=== PATIENT | female | born 1975 | race Caucasian/White ===

== ENCOUNTER 2016-06-06 12:06 | Inpatient (IN) | payer OTHER ==
[2016-06-06 12:12] VITALS: BMI 23.8
--- NOTE | 2016-06-06 12:35 | PDOC ---
History of Present Illness <Amor Carrero - Last Filed: 06/06/16 15:23> - General History Source: Patient Exam Limitations: No Limitations - History of Present Illness Initial Comments: 06/06/16 14:58 The patient is a 40 year old female, with a significant past medical history of kidney stones, who presents to the emergency department with right tooth pain , right sided facial swelling and headache for the past 3 days. The patient states that she was getting a route canal placed on the right sided 3 days ago when she was having excessive bleeding and severe pain, which stopped the procedure. She was sent home and and informed to spanish moss picker antibiotics and pain medications. She states that she attempted to spanish moss picker the medication and was informed by the pharmacy that there was no medication for her to spanish moss picker. She notes that she then began to take an antibiotic she had from a previous been prescribed from another dental procedure she had a month ago. The patient denies chest pain, shortness of breath, headache and dizziness. Denies fever, chills, nausea, vomit, diarrhea and constipation. LMP: 05/24/16 Allergies: None Past surgical history: None repo Social history: No Alcohol, tobacco or drug use reported Dentist - Dr. Michael black [phone] <Roni Rdz - Last Filed: 06/06/16 15:58> - General Chief Complaint: Edema Stated Complaint: SWOLLEN FACE/dizziness Time Seen by Provider: 06/06/16 12:17 Past History - Past Medical History Kidney Stones: Yes - Psycho/Social/Smoking Cessation Hx Anxiety: No Suicidal Ideation: No Smoking History: Never smoked Information on smoking cessation initiated: No Hx Alcohol Use: No Drug/Substance Use Hx: No Substance Use Type: None <Amor Carrero - Last Filed: 06/06/16 15:23> <Roni Rdz - Last Filed: 06/06/16 15:58> - Past Medical History Allergies/Adverse Reactions: Allergies Allergy/AdvReac Type Severity Reaction Status Date / Time grass pollen Allergy Verified 06/06/16 12:12 pollen extracts Allergy Verified 06/06/16 12:12 Home Medications: Ambulatory Orders Amoxicillin - [Amoxicillin 500mg Capsule -] 500 mg PO Q8H 06/06/16 Ibuprofen 600 mg PO QID PRN 06/06/16 Oxycodone HCl/Acetaminophen [Percocet 5-325 mg Tablet] 1 tab PO Q4H 06/06/16 Review of Systems - Review of Systems Able to Perform ROS?: Yes Comments:: 06/06/16 14:59 CONSTITUTIONAL: No fever, no chills, no fatigue EYES: No visual changes FACE: +Right sided facial swelling. ENT: +Right sided tooth pain. No ear pain, no sore throat CARDIOVASCULAR: No chest pain, no palpitations RESPIRATORY: No cough, no SOB GI: No abdominal pain, no nausea, no vomiting, no constipation, no diarrhea GENITOURINARY: No dysuria, no frequency, no hematuria MUSKULOSKELETAL: No backpain, no joint pain, no myalgias SKIN: No rash NEURO: No headache <Roni Rdz - Last Filed: 06/06/16 15:58> *Physical Exam - Vital Signs Last Vital Signs Temp Pulse Resp BP Pulse Ox 98.2 F 75 18 102/65 100 06/06/16 12:10 06/06/16 12:10 06/06/16 12:10 06/06/16 12:10 06/06/16 12:10 <Amor Carrero - Last Filed: 06/06/16 15:23> - Vital Signs Last Vital Signs Temp Pulse Resp BP Pulse Ox 98.2 F 75 18 102/65 100 06/06/16 12:10 06/06/16 12:10 06/06/16 12:10 06/06/16 12:10 06/06/16 12:10 - Physical Exam Comments: 06/06/16 14:59 CONSTITUTIONAL: Well-appearing; well-nourished; in no apparent distress HEAD: Normocephalic; atraumatic EYES: PERRL; EOM intact FACE: Extensive soft tissue swelling and erythema involving the right side of the face, from the right Zigmoid to the mandible. ENMT: External appears normal; normal oropharynx NECK: Supple; non-tender; no cervical lymphadenopathy CARD: Normal S1, S2; no murmurs, rubs, or gallops RESP: Normal chest excursion with respiration; breath sounds clear and equal bilaterally; no wheezes, rhonchi, or rales ABD: Soft, non-distended; non-tender; no palpable organomegaly, no palpable hernias EXT: Normal ROM in all four extremities; non-tender to palpation; distal pulses intact SKIN: Warm, dry, no rash NEURO: No focal neurological deficiencies. <Roni Rdz - Last Filed: 06/06/16 15:58> ED Treatment Course - LABORATORY CBC & Chemistry Diagram: 06/06/16 13:09 06/06/16 13:09 <Amor Carrero - Last Filed: 06/06/16 15:23> - LABORATORY CBC & Chemistry Diagram: 06/06/16 13:09 06/06/16 13:09 - ADDITIONAL ORDERS Additional order review: Laboratory Results 06/06/16 12:50 Urine HCG, Qual Negative 06/06/16 13:09 RBC 4.46 MCV 89.2 MCHC 33.5 RDW 13.5 MPV 10.3 Neutrophils % 59.2 Lymphocytes % 26.5 D Monocytes % 8.6 Eosinophils % 5.3 H D Basophils % 0.4 - RADIOLOGY Radiograph Interpretation: 06/06/16 14:[address] Reviewed by: Dr. Aaron Read Impression: Significant right side facial soft tissue swelling inferior to the right parotid gland compatible with significant right sided cellulitis with soft tissue inflammatory changes and edematous changes. However on noncontrast study no discrete abscess collection can be identified. - Medications Given in the ED: ED Medications Discontinued Medications Generic Name Dose Route Start Last Admin Trade Name Freq PRN Reason Stop Dose Admin Clindamycin Phosphate 50 mls @ 100 mls/hr 06/06/16 13:06 06/06/16 13:19 Cleocin 600 Mg Premix Ivpb - IVPB 06/06/16 13:35 100 mls/hr ONCE ONE Administration <Roni Rdz - Last Filed: 06/06/16 15:58> Medical Decision Making - Medical Decision Making 06/06/16 15:24 Patient is a 40-year-old female who presents with signs and symptoms of extensive right-sided facial cellulitis likely odontogenic in origin after a root canal procedure at 2 days previously. In the ER, patient is awake and alert , nontoxic-appearing, with minimal right-sided trismus, no evidence of airway compromise, intact extraocular movements without evidence of entrapment or orbital cellulitis. CT of facial bones reveals extensive subcutaneous edema consistent with cellulitis but no evidence of a discrete collection. Patient will require inpatient treatment with IV antibiotics. <Amor Carrero - Last Filed: 06/06/16 15:23> *DC/Admit/Observation/Transfer - Discharge Dispostion Admit: Yes - Attestations Physician Attestion: 06/06/16 15:23 The documentation was prepared by the scribe under my direct supervision. I have reviewed the documentation which correctly represents the findings, medical decision-making and critical action taken by me. <Amor Carrero - Last Filed: 06/06/16 15:23> - Attestations Scribe Attestion: 06/06/16 14:59 Documentation prepared by Roni Rdz, acting as medical lab director for Amor Carrero MD. <Roni Rdz - Last Filed: 06/06/16 15:58> Diagnosis at time of Disposition: Diffuse cellulitis of face
[2016-06-06] MEDS ORDERED: CLINDAMYCIN 600MG PREMIX IVPB 50 ML IVPB ONE ×2 (13:06→13:07)
[2016-06-06 13:29] LABS: BASOPHIL 0.4 % (0-2.0); EOSINOPHIL 5.3 % (0-4.5); MCH 29.9 pg (25.7-33.7); MCHC 33.5 g/dl (32.0-36.0); MEAN CELL VOLUME 89.2 fl (80-96); MEAN PLT VOLUME 10.3 fl (7.5-11.1); NEUTROPHILS 59.2 % (42.8-82.8); PLATELET COUNT 225 K/MM3 (134-434); RDW 13.5 % (11.6-15.6); WHITE BLOOD COUNT 5.3 K/mm3 (4.0-10.0)
[2016-06-06 14:38] LABS: ALBUMIN 3.6 g/dl (3.4-5.0); ALK PHOS 63 U/L (45-117); ANION GAP 9 (8-16); BILIRUBIN,TOTAL 0.5 mg/dL (0.2-1.0); CALCIUM 8.5 mg/dL (8.5-10.1); CO2 25 mmol/L (21-32); CREATININE 0.5 mg/dL (0.55-1.02); GLUCOSE,RANDOM 71 mg/dL (74-106); SGOT/AST 18 U/L (15-37); SGPT/ALT 18 U/L (12-78); TOT PROT 6.7 g/dl (6.4-8.2)
[2016-06-06] MEDS ORDERED: OXYCODONE/APAP 5/325MG COMBO TABLET PO ONE (15:44)
[2016-06-06] MEDS ORDERED: OXYCODONE/APAP 5/325MG COMBO TABLET ONE (15:52)
--- NOTE | 2016-06-06 16:03 | HP ---
CHIEF COMPLAINT: Right facial edema PCP: Dr. Maryann Grullon MD Dentist - [facility], Dr. Michael Huffman, [address] [place] [address] HISTORY OF PRESENT ILLNESS: Patient is a 40 year female with a significant past medical history of kidney stones. She presented to the ED on 06/06/2016 with right facial swelling and right upper molar pain. She states that her facial swelling began on 06/04/2016 after a root canal procedure. She states that during the root canal procedure, she experienced severe bleeding and pain which stopped the procedure. She states she was given Novocaine twice during the procedure and reports feeling dizzy after getting Novocaine. After, the procedure, she was informed to garbage pick up worker antibiotics and pain medications that were called into her pharmacy. However, when she went to garbage pick up worker the prescribed medications at [facility], the medications were not there. She instead took Amoxicillin 500mg that she had at home from a previous dental procedure. She denies any chest pain, shortness of breath, dizziness, headache, nausea or vomiting or difficulty swallowing. Allergies: dust, pollen, grass ER course was notable for: (1) Right facial edema, tooth pain (2) Extensive soft tissue swelling and erythema involving the right side of the face (3) Negative for IJ DVT Recent Travel: denies PAST MEDICAL HISTORY: kidney stones PAST SURGICAL HISTORY: none reported Social History: Smoking: denies Alcohol: denies Drugs: denies Family History: grass pollen Allergy (Verified 06/06/16 12:12) pollen extracts Allergy (Verified 06/06/16 12:12) HOME MEDICATIONS: Home Medications Medication Instructions Recorded Amoxicillin - [Amoxicillin 500mg 500 mg PO Q8H 06/06/16 Capsule -] Ibuprofen 600 mg PO QID PRN 06/06/16 Oxycodone HCl/Acetaminophen 1 tab PO Q4H 06/06/16 [Percocet 5-325 mg Tablet] REVIEW OF SYSTEMS CONSTITUTIONAL: Absent: fever, diaphoresis, generalized weakness, malaise, loss of appetite, weight change HEENT: Absent: rhinorrhea, nasal congestion, throat pain, throat swelling, difficulty swallowing, mouth swelling, ear pain, eye pain, visual changes CARDIOVASCULAR: Absent: chest pain, syncope, palpitations, irregular heart rate, lightheadedness RESPIRATORY: Absent: cough, shortness of breath, dyspnea with exertion, orthopnea, wheezing, stridor, hemoptysis GASTROINTESTINAL: Absent: abdominal pain, abdominal distension, nausea, vomiting, diarrhea, constipation, melena, hematochezia GENITOURINARY: Absent: dysuria, frequency, urgency, hesitancy, hematuria, flank pain, genital pain MUSCULOSKELETAL: Absent: myalgia, arthralgia, joint swelling, back pain, neck pain SKIN: swelling and cellulitis and erythema of the rt sided of the face Absent: rash, itching, pallor HEMATOLOGIC/IMMUNOLOGIC: Absent: easy bleeding, easy bruising, lymphadenopathy, frequent infections ENDOCRINE: Absent: unexplained weight gain, unexplained weight loss, heat intolerance, cold intolerance NEUROLOGIC: Absent: headache, focal weakness or paresthesias, dizziness, unsteady gait, seizure, mental status changes, bladder or bowel incontinence PSYCHIATRIC: Absent: anxiety, depression, suicidal or homicidal ideation, hallucinations. PHYSICAL EXAMINATION GENERAL: Awake, alert, and fully oriented, in no acute distress. HEAD: Extensive soft tissue swelling and erythema involving the right side of the face, from the right Zigmoid to the mandible. EYES: Pupils equal, round and reactive to light, extraocular movements intact, sclera anicteric, conjunctiva clear. No lid lag. EARS, NOSE, THROAT: Ears normal, nares patent, oropharynx clear without exudates. Moist mucous membranes. NECK: Normal range of motion, supple without lymphadenopathy, JVD, or masses. LUNGS: Breath sounds equal, clear to auscultation bilaterally. No wheezes HEART: Regular rate and rhythm ABDOMEN: Soft, nontender, not distended, normoactive bowel sounds, no guarding, no rebound, no masses. MUSCULOSKELETAL: Normal range of motion at all joints. No bony deformities or tenderness. No CVA tenderness. UPPER EXTREMITIES: 2+ pulses, warm, well-perfused. No cyanosis. No clubbing. Cap refill <2 seconds. No peripheral edema. LOWER EXTREMITIES: 2+ pulses, warm, well-perfused. No calf tenderness. No peripheral edema. NEUROLOGICAL: Normal speech. Normal gait. PSYCHIATRIC: Cooperative. Good eye contact. Appropriate mood and affect. ASSESSMENT/PLAN: Patient is a 40 year female with a significant past medical history of kidney stones. She presented to the ED on 06/06/2016 with right facial swelling and right upper molar pain. She states that her facial swelling began on 06/04/2016 after a root canal procedure. She states that during the root canal procedure, she experienced severe bleeding and pain which stopped the procedure. She states she was given Novocaine twice during the procedure and reports feeling dizzy after getting Novocaine. After, the procedure, she was informed to garbage pick up worker antibiotics and pain medications that were called into her pharmacy. However , when she went to garbage pick up worker the prescribed medications at [facility], the medications were not there. She instead took Amoxicillin 500mg that she had at home from a previous dental procedure. She denies any chest pain, shortness of breath, dizziness, headache, nausea or vomiting or difficulty swallowing. Imagin06/06/16 Upper Extremity Doppler to rule out DVT of right internal jugular negative for DVT 06/06/[address] - Significant right sided facial soft tissue swelling to right partoid gland compatible with significant right sided facial cellulitis. ID: Facial Cellulitis - acute Assessment/Plan: Patient presented to ER with extensive soft tissue swelling and erythema involving the right side of the face after a root canal procedure. Differential includes right facial bacterial infection vs. allergic reaction to Novocaine injection. She received a dose of Clindamycin in ED. She has significant swelling at the site where she received the Novocaine injection and may have had a reaction. There are no hives, no wheezing noted, no throat swelling, oxygen stable at 100 % on room air Blood cultures pending She remains afebrile, WBC within normal limits, no wheezing on exam ID consulted Maxillofacial surgeon consulted Neurology: Dizziness - resolved Assessment/Plan: Denied dizziness on exam, will monitor Neuro assessments q 4 If has recurrent dizziness, will order head CT F.E.N. Fluids: Tolerating PO Electrolytes: within normal limits Nutrition: Regular diet Prophylaxis: DVT: Heparin, ambulation Gi: Colace Disposition: Requires inpatient observation. Full Code. Visit type - Emergency Visit Emergency Visit: Yes ED Registration Date: 06/06/16 Care time: The patient presented to the Emergency Department on the above date and was hospitalized for further evaluation of their emergent condition. - New Patient This patient is new to me today: Yes Date on this admission: 06/06/16 - Critical Care Critical Care patient: No
[2016-06-06] MEDS ORDERED: IBUPROFEN 600 MG TABLET (FP) PO PRN (16:22)
[2016-06-06] MEDS ORDERED: OXYCODONE/APAP 5/325MG COMBO TABLET PO PRN (16:22)
[2016-06-06] MEDS ORDERED: ACETAMINOPHEN 325 MG TABLET (FP) PO PRN (16:26)
--- NOTE | 2016-06-06 17:01 | CONSULT ---
Consult Consult Specialty:: infectious diseases Reason for Consultation:: facial cellulitis and erythema - History of Present Illness Chief Complaint: rt sided facial swelling,pain History of Present Illness: Patient is a 40 year female with a significant past medical history of kidney stones. She presented to the ED on 06/06/2016 with right facial swelling and right upper molar pain. She states that her facial swelling began on 06/04/2016 after a root canal procedure. She states that during the root canal procedure, she experienced severe bleeding and pain which stopped the procedure. according to the family of the patient this all happened on ,then when the swelling occurred she went back to the dentist since the swelling was no going down and the pain increased patient decided to come to the hospital Now she comes with swelling and cellulitis and erythema of the rt sided of the face I palpated her upper teeth where she has pain and induration denies any other symptoms of headache nausea and vomiting - History Source History Provided By: Patient, Family Member Limitations to Obtaining History: Language Barrier - Alcohol/Substance Use Hx Alcohol Use: No - Smoking History Smoking history: Never smoked Home Medications - Allergies Allergies/Adverse Reactions: Allergies Allergy/AdvReac Type Severity Reaction Status Date / Time grass pollen Allergy Verified 06/06/16 12:12 pollen extracts Allergy Verified 06/06/16 12:12 - Home Medications Home Medications: Ambulatory Orders Amoxicillin - [Amoxicillin 500mg Capsule -] 500 mg PO Q8H 06/06/16 Ibuprofen 600 mg PO QID PRN 06/06/16 Oxycodone HCl/Acetaminophen [Percocet 5-325 mg Tablet] 1 tab PO Q4H 06/06/16 Review of Systems - Review of Systems Constitutional: reports: Other Eyes: reports: No Symptoms HENT: reports: Difficult Swallowing, Mouth Swelling, Other Neck: reports: No Symptoms Cardiovascular: reports: No Symptoms Respiratory: reports: No Symptoms Gastrointestinal: reports: No Symptoms Genitourinary: reports: No Symptoms Breasts: reports: No Symptoms Reported Musculoskeletal: reports: No Symptoms Integumentary: reports: Change in Color, Erythema, Other Neurological: reports: No Symptoms Endocrine: reports: No Symptoms Hematology/Lymphatic: reports: No Symptoms Psychiatric: reports: No Symptoms Physical Exam Vital Signs: Vital Signs Temperature 98.3 F 06/06/16 16:15 Pulse Rate 70 06/06/16 16:15 Respiratory Rate 14 06/06/16 16:15 Blood Pressure 117/78 06/06/16 16:15 O2 Sat by Pulse Oximetry (%) 100 06/06/16 16:15 Constitutional: Yes: Well Nourished, Calm, Mild Distress Eyes: Yes: Conjunctiva Clear HENT: Yes: WNL, Atraumatic, Other (swelling on the rt side of the face difficuilty opening her mouth) Neck: Yes: Supple, Trachea Midline Cardiovascular: Yes: Regular Rate and Rhythm Respiratory: Yes: Regular, CTA Bilaterally Gastrointestinal: Yes: Normal Bowel Sounds, Soft Musculoskeletal: Yes: WNL Extremities: Yes: WNL Neurological: Yes: Alert, Oriented Psychiatric: Yes: Alert Imaging - Results Cat Scan: Report Reviewed, Image Reviewed Ultrasound: Report Reviewed, Image Reviewed Assessment/Plan patient evaluated facial cellulitis probably due to her root autumn dizziness plan clinda unasyn if patient does not show improvement orofacial surgery we will monitor initially with abx
[2016-06-06] MEDS ORDERED: INFLUENZA VACCINE 45 MCG/0.5 ML (MDV 16-17) IM ONE (17:09)
[2016-06-06] MEDS: CLINDAMYCIN 600MG PREMIX IVPB 50 ML IVPB SCH (18:03)
[2016-06-06] MEDS: DOCUSATE SODIUM 100 MG CAPSULE (FP) PO SCH (22:46)
[2016-06-06] MEDS: AMPICILLIN NA/SULBACTAM NA 100 ML IVPB SCH (22:46)
[2016-06-06] MEDS: ACETAMINOPHEN 325 MG TABLET (FP) PO PRN (22:47)
[2016-06-06] MEDS: HEPARIN NA (PORCINE) 5,000 UNITS/ML 1ML VIAL SQ SCH (22:47)
[2016-06-06] MEDS: oxyCODONE HCL 5 MG TABLET PO PRN (22:48)
[2016-06-07] MEDS ORDERED: PT OWN MED DRAWER 7, Y5N ONE (01:45)
[2016-06-07] MEDS: CLINDAMYCIN 600MG PREMIX IVPB 50 ML IVPB SCH ×3 (02:14→17:36)
[2016-06-07] MEDS: AMPICILLIN NA/SULBACTAM NA 100 ML IVPB SCH ×2 (03:26→12:22)
[2016-06-07] MEDS: HEPARIN NA (PORCINE) 5,000 UNITS/ML 1ML VIAL SQ SCH ×3 (07:08→22:18)
[2016-06-07 08:30] LABS: BASOPHIL 0.5 % (0-2.0); EOSINOPHIL 5.8 % (0-4.5); MCH 30.1 pg (25.7-33.7); MEAN CELL VOLUME 88.4 fl (80-96); MEAN PLT VOLUME 10.7 fl (7.5-11.1); NEUTROPHILS 45.9 % (42.8-82.8); PLATELET COUNT 221 K/MM3 (134-434); RDW 13.1 % (11.6-15.6); WHITE BLOOD COUNT 5.3 K/mm3 (4.0-10.0)
[2016-06-07 08:44] LABS: ALBUMIN 3.2 g/dl (3.4-5.0); ALK PHOS 53 U/L (45-117); ANION GAP 11 (8-16); BILIRUBIN,TOTAL 0.8 mg/dL (0.2-1.0); CALCIUM 8.1 mg/dL (8.5-10.1); CO2 24 mmol/L (21-32); CREATININE 0.6 mg/dL (0.55-1.02); GLUCOSE,RANDOM 80 mg/dL (74-106); SGOT/AST 20 U/L (15-37); SGPT/ALT 19 U/L (12-78)
[2016-06-07] MEDS ORDERED: AMPICILLIN NA/SULBACTAM NA 3 GM in SODIUM CHLORIDE 100 ML IVPB SCH (10:30)
[2016-06-07] MEDS: DOCUSATE SODIUM 100 MG CAPSULE (FP) PO SCH ×2 (10:53→22:19)
[2016-06-07] MEDS: PANTOPRAZOLE 40 MG TABLET (FP) PO SCH (10:53)
--- NOTE | 2016-06-07 11:01 | PN ---
Physical Exam: SUBJECTIVE: Patient seen and examined. States she feels much improved, and notices that the swelling on the right side of her face is better. She denies any shortness of breath or difficulty swallowing. OBJECTIVE: GENERAL: Awake, alert, and fully oriented, in no acute distress. HEAD: Extensive soft tissue swelling and erythema involving the right side of the face, from the right Zigmoid to the mandible. There is no periorbital edema, no swelling to her tongue, no signs of trauma in any of the areas of her face or oral cavity EYES: Pupils equal, round and reactive to light, extraocular movements intact, sclera anicteric, conjunctiva clear. No lid lag. EARS, NOSE, THROAT: Ears normal, nares patent, oropharynx clear without exudates. Moist mucous membranes. NECK: Normal range of motion, supple without lymphadenopathy, JVD, or masses. LUNGS: Breath sounds equal, clear to auscultation bilaterally. No wheezes HEART: Regular rate and rhythm ABDOMEN: Soft, nontender, not distended, normoactive bowel sounds, no guarding, no rebound, no masses. MUSCULOSKELETAL: Normal range of motion at all joints. No bony deformities or tenderness. No CVA tenderness. UPPER EXTREMITIES: No cyanosis. No clubbing. No peripheral edema. LOWER EXTREMITIES: 2+ pulses, warm, well-perfused. No calf tenderness. No peripheral edema. NEUROLOGICAL: Normal speech. Normal gait. PSYCHIATRIC: Cooperative. Good eye contact. Appropriate mood and affect. Vital Signs Period Temp Pulse Resp BP Sys/Hughes Pulse Ox Last 24 Hr 97.7 F-98.9 F 62-70 14-20 100-117/62-78 100-100 Laboratory Results - last 24 hr 06/07/16 06/07/16 06:20 06:20 WBC 5.3 RBC 4.23 Hgb 12.7 Hct 37.4 MCV 88.4 MCHC 34.0 RDW 13.1 Plt Count 221 MPV 10.7 Neutrophils % 45.9 D Lymphocytes % 38.3 D Monocytes % 9.5 Eosinophils % 5.8 H Basophils % 0.5 Sodium 140 Potassium 4.1 Chloride 105 Carbon Dioxide 24 Anion Gap 11 BUN 10 Creatinine 0.6 Creat Clearance w eGFR > 60 Random Glucose 80 Calcium 8.1 L Total Bilirubin 0.8 D AST 20 ALT 19 Alkaline Phosphatase 53 Total Protein 6.0 L Albumin 3.2 L Active Medications Generic Name Dose Route Start Last Admin Trade Name Freq PRN Reason Stop Dose Admin Acetaminophen 325 mg 06/06/16 18:03 06/06/16 22:47 Tylenol - PO 325 mg Q6H PRN Administration PAIN Docusate Sodium 100 mg 06/06/16 22:00 06/07/16 10:53 Colace - PO 100 mg BID HÉCTOR Administration Heparin Sodium (Porcine) 5,000 unit 06/06/16 22:00 06/07/16 07:08 Heparin - SQ Not Given TID HÉCTOR Clindamycin Phosphate 50 mls @ 100 mls/hr 06/06/16 18:00 06/07/16 10:53 Cleocin 600 Mg Premix Ivpb - IVPB 100 mls/hr Q8H-IV HÉCTOR Administration Ampicillin Sodium/Sulbactam 100 mls @ 200 mls/hr 06/07/16 11:30 Sodium 3 gm/ Sodium Chloride IVPB Q8H-IV HÉCTOR Ibuprofen 600 mg 06/06/16 16:22 Motrin - PO QID PRN PAIN Oxycodone HCl 5 mg 06/06/16 18:03 06/06/16 22:48 Roxicodone - PO 5 mg Q6H PRN Administration PAIN Pantoprazole Sodium 40 mg 06/07/16 10:00 06/07/16 10:53 Protonix - PO 40 mg DAILY [facility] Administration ASSESSMENT/PLAN: Patient is a 40 year female with a significant past medical history of kidney stones. She presented to the ED on 06/06/2016 with right facial swelling and right upper molar pain. She states that her facial swelling began on 06/04/2016 after a root canal procedure. She states that during the root canal procedure, she experienced severe bleeding and pain which stopped the procedure. She states she was given Novocaine twice during the procedure and reports feeling dizzy after getting Novocaine. After, the procedure, she was informed to olive picker antibiotics and pain medications that were called into her pharmacy. However , when she went to olive picker the prescribed medications at [facility], the medications were not there. She instead took Amoxicillin 500mg that she had at home from a previous dental procedure. She denies any chest pain, shortness of breath, dizziness, headache, nausea or vomiting or difficulty swallowing. Imagin06/06/16 Upper Extremity Doppler to rule out DVT of right internal jugular negative for DVT 06/06/[address] - Significant right sided facial soft tissue swelling to right partoid gland compatible with significant right sided facial cellulitis. ID: Facial Cellulitis - improving Assessment/Plan: Patient presented to ER with extensive soft tissue swelling and erythema involving the right side of the face after a root canal procedure. Differential includes right facial bacterial infection vs. allergic reaction to Novocaine injection. She received a dose of Clindamycin in ED. She is now on Ampicillin Q8 and Clindamycin Q8 Her right sided facial swelling has significantly improved She remains afebrile, WBC within normal limits, no wheezing on exam Blood cultures pending ID following Maxillofacial surgeon consulted Neurology: Dizziness - resolved Assessment/Plan: No dizziness, ambulating without difficulty. Neuro assessments q 4, If has recurrent dizziness, will order head CT F.E.N. Fluids: Tolerating PO Electrolytes: within normal limits Nutrition: Regular diet Prophylaxis: DVT: Heparin, ambulation Gi: Colace Disposition: Requires inpatient observation. Full Code. Visit type - Emergency Visit Emergency Visit: Yes ED Registration Date: 06/06/16 Care time: The patient presented to the Emergency Department on the above date and was hospitalized for further evaluation of their emergent condition. - New Patient This patient is new to me today: No - Critical Care Critical Care patient: No - Discharge Referral Referred to [facility] Med [facility] No
[2016-06-07] MEDS: AMPICILLIN NA/SULBACTAM NA 3 GM in SODIUM CHLORIDE 100 ML IVPB SCH ×2 (12:10→17:32)
--- NOTE | 2016-06-07 15:33 | PN ---
Progress Note, Physician History of Present Illness: swelling has improved a lot patient feels much better - Current Medication List Current Medications: Active Medications Acetaminophen (Tylenol -) 325 mg PO Q6H PRN PRN Reason: PAIN Last Admin: 06/06/16 22:47 Dose: 325 mg Docusate Sodium (Colace -) 100 mg PO BID [facility] Last Admin: 06/07/16 10:53 Dose: 100 mg Heparin Sodium (Porcine) (Heparin -) 5,000 unit SQ TID [facility] Last Admin: 06/07/16 14:16 Dose: Not Given Clindamycin Phosphate (Cleocin 600 Mg Premix Ivpb -) 50 mls @ 100 mls/hr IVPB Q8H-IV [facility] Last Admin: 06/07/16 10:53 Dose: 100 mls/hr Ampicillin Sodium/Sulbactam (Sodium 3 gm/ Sodium Chloride) 100 mls @ 200 mls/ hr IVPB Q8H-IV [facility] Last Admin: 06/07/16 12:10 Dose: 200 mls/hr Ibuprofen (Motrin -) 600 mg PO QID PRN PRN Reason: PAIN Oxycodone HCl (Roxicodone -) 5 mg PO Q6H PRN PRN Reason: PAIN Last Admin: 06/06/16 22:48 Dose: 5 mg Pantoprazole Sodium (Protonix -) 40 mg PO DAILY [facility] Last Admin: 06/07/16 10:53 Dose: 40 mg - Objective Vital Signs: Vital Signs Temperature 99.2 F 06/07/16 14:00 Pulse Rate 72 06/07/16 14:00 Respiratory Rate 18 06/07/16 14:00 Blood Pressure 97/54 06/07/16 10:00 O2 Sat by Pulse Oximetry (%) 100 06/06/16 21:00 Constitutional: Yes: No Distress, Calm HENT: Yes: Atraumatic Neck: Yes: Supple, Trachea Midline Cardiovascular: Yes: Regular Rate and Rhythm Respiratory: Yes: Regular, CTA Bilaterally Gastrointestinal: Yes: Normal Bowel Sounds, Soft Musculoskeletal: Yes: WNL Extremities: Yes: WNL Neurological: Yes: Alert, Oriented Psychiatric: Yes: Alert Labs: CBC, BMP 06/07/16 06:20 06/07/16 06:20 Assessment/Plan patient evaluated facial cellulitis probably due to her root autumn dizziness plan clinda unasyn patient doing well swelling markedly less
[2016-06-07] MEDS: ACETAMINOPHEN 325 MG TABLET (FP) PO PRN (22:19)
[2016-06-07] MEDS: oxyCODONE HCL 5 MG TABLET PO PRN (22:19)
[2016-06-08] MEDS: CLINDAMYCIN 600MG PREMIX IVPB 50 ML IVPB SCH ×2 (02:23→09:30)
[2016-06-08] MEDS: AMPICILLIN NA/SULBACTAM NA 3 GM in SODIUM CHLORIDE 100 ML IVPB SCH ×2 (02:23→10:44)
[2016-06-08] MEDS: HEPARIN NA (PORCINE) 5,000 UNITS/ML 1ML VIAL SQ SCH ×2 (06:18→14:34)
[2016-06-08 06:34] VITALS: TEMP 98.1
[2016-06-08 07:17] LABS: BASOPHIL 0.4 % (0-2.0); EOSINOPHIL 5.7 % (0-4.5); MCH 30.2 pg (25.7-33.7); MCHC 34.3 g/dl (32.0-36.0); MEAN PLT VOLUME 10.1 fl (7.5-11.1); PLATELET COUNT 223 K/MM3 (134-434); RDW 13.4 % (11.6-15.6); WHITE BLOOD COUNT 4.8 K/mm3 (4.0-10.0)
[2016-06-08 07:31] LABS: ALBUMIN 3.4 g/dl (3.4-5.0); ANION GAP 10 (8-16); BILIRUBIN,TOTAL 0.5 mg/dL (0.2-1.0); CALCIUM 8.2 mg/dL (8.5-10.1); CO2 25 mmol/L (21-32); CREATININE 0.6 mg/dL (0.55-1.02); GLUCOSE,RANDOM 88 mg/dL (74-106); SGOT/AST 32 U/L (15-37); SGPT/ALT 39 U/L (12-78); TOT PROT 6.4 g/dl (6.4-8.2)
[2016-06-08 07:32] LABS: ALK PHOS 64 U/L (45-117)
[2016-06-08] MEDS: PANTOPRAZOLE 40 MG TABLET (FP) PO SCH (09:30)
[2016-06-08] MEDS: DOCUSATE SODIUM 100 MG CAPSULE (FP) PO SCH (09:30)
[2016-06-08 14:10] VITALS: PULSE 70
--- NOTE | 2016-06-08 14:12 | PN ---
Physical Exam: SUBJECTIVE: Patient seen and examined. She was laying in her bed, in no acute distress. States her face feels better. She denies any shortness of breath. Denies any difficulty swallowing. OBJECTIVE: Vital Signs Period Temp Pulse Resp BP Sys/Hughes Pulse Ox Last 24 Hr 98.1 F-98.8 F 60-68 18-18 90-101/53-58 100 GENERAL: Awake, alert, and fully oriented, in no acute distress. HEAD: soft tissue swelling and erythema involving the right side of the face has improved since admission There is no periorbital edema, no swelling to her tongue, no signs of trauma in any of the areas of her face or oral cavity EYES: Pupils equal, round and reactive to light, extraocular movements intact, sclera anicteric, conjunctiva clear. No lid lag. EARS, NOSE, THROAT: Ears normal, nares patent, oropharynx clear without exudates. Moist mucous membranes. NECK: Normal range of motion, supple without lymphadenopathy, JVD, or masses. LUNGS: Breath sounds equal, clear to auscultation bilaterally. No wheezes HEART: Regular rate and rhythm ABDOMEN: Soft, nontender, not distended, normoactive bowel sounds, no guarding, no rebound, no masses. MUSCULOSKELETAL: Normal range of motion at all joints. No bony deformities or tenderness. No CVA tenderness. UPPER EXTREMITIES: No cyanosis. No clubbing. No peripheral edema. LOWER EXTREMITIES: 2+ pulses, warm, well-perfused. No calf tenderness. No peripheral edema. NEUROLOGICAL: Normal speech. Normal gait. PSYCHIATRIC: Cooperative. Good eye contact. Appropriate mood and affect. Vital Signs Laboratory Results - last 24 hr 06/08/16 06/08/16 06:30 06:30 WBC 4.8 RBC 4.33 Hgb 13.1 Hct 38.1 MCV 88.0 MCHC 34.3 RDW 13.4 Plt Count 223 MPV 10.1 Neutrophils % 45.0 Lymphocytes % 38.1 Monocytes % 10.8 H Eosinophils % 5.7 H Basophils % 0.4 Sodium 142 Potassium 4.5 Chloride 107 Carbon Dioxide 25 Anion Gap 10 BUN 14 D Creatinine 0.6 Creat Clearance w eGFR > 60 Random Glucose 88 Calcium 8.2 L Total Bilirubin 0.5 D AST 32 D ALT 39 D Alkaline Phosphatase 64 D Total Protein 6.4 Albumin 3.4 Active Medications Generic Name Dose Route Start Last Admin Trade Name Freq PRN Reason Stop Dose Admin Acetaminophen 325 mg 06/06/16 18:03 06/07/16 22:19 Tylenol - PO 325 mg Q6H PRN Administration PAIN Docusate Sodium 100 mg 06/06/16 22:00 06/08/16 09:30 Colace - PO 100 mg BID [facility] Administration Heparin Sodium (Porcine) 5,000 unit 06/06/16 22:00 06/08/16 06:18 Heparin - SQ Not Given TID [facility] Clindamycin Phosphate 50 mls @ 100 mls/hr 06/06/16 18:00 06/08/16 09:30 Cleocin 600 Mg Premix Ivpb - IVPB 100 mls/hr Q8H-IV [facility] Administration Ampicillin Sodium/Sulbactam 100 mls @ 200 mls/hr 06/07/16 11:30 06/08/16 10:44 Sodium 3 gm/ Sodium Chloride IVPB 200 mls/hr Q8H-IV [facility] Administration Ibuprofen 600 mg 06/06/16 16:22 Motrin - PO QID PRN PAIN Oxycodone HCl 5 mg 06/06/16 18:03 06/07/16 22:19 Roxicodone - PO 5 mg Q6H PRN Administration PAIN Pantoprazole Sodium 40 mg 06/07/16 10:00 06/08/16 09:30 Protonix - PO 40 mg DAILY [facility] Administration ASSESSMENT/PLAN: Patient is a 40 year female with a significant past medical history of kidney stones. She presented to the ED on 06/06/2016 with right facial swelling and right upper molar pain. She states that her facial swelling began on 06/04/2016 after a root canal procedure. She states that during the root canal procedure, she experienced severe bleeding and pain which stopped the procedure. She states she was given Novocaine twice during the procedure and reports feeling dizzy after getting Novocaine. After, the procedure, she was informed to brain picker antibiotics and pain medications that were called into her pharmacy. However , when she went to brain picker the prescribed medications at [facility], the medications were not there. She instead took Amoxicillin 500mg that she had at home from a previous dental procedure. She denies any chest pain, shortness of breath, dizziness, headache, nausea or vomiting or difficulty swallowing. Imagin06/06/16 Upper Extremity Doppler to rule out DVT of right internal jugular negative for DVT 06/06/[address] - Significant right sided facial soft tissue swelling to right partoid gland compatible with significant right sided facial cellulitis. ID: Facial Cellulitis - improving - less edema/slight tenderness Assessment/Plan: Patient presented to ER with extensive soft tissue swelling and erythema involving the right side of the face after a root canal procedure. Differential includes right facial bacterial infection vs. allergic reaction to Novocaine injection. On Ampicillin Q8 and Clindamycin Q8 Her right sided facial swelling has significantly improved She remains afebrile, WBC within normal limits, no wheezing on exam Blood cultures negative to date ID following Neurology: Dizziness - resolved Assessment/Plan: No dizziness, ambulating without difficulty. Neuro assessments q 4, If has recurrent dizziness, will order head CT F.E.N. Fluids: Tolerating PO Electrolytes: within normal limits Nutrition: Regular diet Prophylaxis: DVT: Heparin, ambulation Gi: Colace Disposition: Full Code. Visit type - Emergency Visit Emergency Visit: Yes ED Registration Date: 06/06/16 Care time: The patient presented to the Emergency Department on the above date and was hospitalized for further evaluation of their emergent condition. - New Patient This patient is new to me today: No - Critical Care Critical Care patient: No - Discharge Referral Referred to [facility] Med P.C.: No
[2016-06-08 16:06] VITALS: BP 114/74
--- NOTE | 2016-06-08 16:17 | PN ---
Progress Note, Physician History of Present Illness: swelling has improved a lot patient feels much better - Current Medication List Current Medications: Active Medications Acetaminophen (Tylenol -) 325 mg PO Q6H PRN PRN Reason: PAIN Last Admin: 06/07/16 22:19 Dose: 325 mg Docusate Sodium (Colace -) 100 mg PO BID [facility] Last Admin: 06/08/16 09:30 Dose: 100 mg Heparin Sodium (Porcine) (Heparin -) 5,000 unit SQ TID [facility] Last Admin: 06/08/16 14:34 Dose: Not Given Clindamycin Phosphate (Cleocin 600 Mg Premix Ivpb -) 50 mls @ 100 mls/hr IVPB Q8H-IV [facility] Last Admin: 06/08/16 09:30 Dose: 100 mls/hr Ampicillin Sodium/Sulbactam (Sodium 3 gm/ Sodium Chloride) 100 mls @ 200 mls/ hr IVPB Q8H-IV [facility] Last Admin: 06/08/16 10:44 Dose: 200 mls/hr Ibuprofen (Motrin -) 600 mg PO QID PRN PRN Reason: PAIN Oxycodone HCl (Roxicodone -) 5 mg PO Q6H PRN PRN Reason: PAIN Last Admin: 06/07/16 22:19 Dose: 5 mg Pantoprazole Sodium (Protonix -) 40 mg PO DAILY [facility] Last Admin: 06/08/16 09:30 Dose: 40 mg - Objective Vital Signs: Vital Signs Temperature 98.1 F 06/08/16 14:00 Pulse Rate 70 06/08/16 14:00 Respiratory Rate 20 06/08/16 14:00 Blood Pressure 114/74 06/08/16 08:00 O2 Sat by Pulse Oximetry (%) 98 06/08/16 08:00 Constitutional: Yes: No Distress, Calm HENT: Yes: Other (swelling of the face has decreased a lot) Cardiovascular: Yes: Regular Rate and Rhythm Respiratory: Yes: Regular, CTA Bilaterally Gastrointestinal: Yes: Normal Bowel Sounds, Soft Musculoskeletal: Yes: WNL Extremities: Yes: WNL Neurological: Yes: Alert, Oriented Psychiatric: Yes: Alert Labs: CBC, BMP 06/08/16 06:30 06/08/16 06:30 Assessment/Plan patient evaluated facial cellulitis probably due to her root autumn dizziness plan patient can go home on clinda 300 mg every 8 hours for 5 days augmentin 875mg twice a day for 5 days if the swelling starts coming back again patient needs to come to ED continue monitoring the swelling
--- NOTE | 2016-06-08 16:37 | PN ---
Physical Exam: SUBJECTIVE: Patient seen and examined. She was laying in her bed, in no acute distress. States her face feels better. She denies any shortness of breath. Denies any difficulty swallowing. OBJECTIVE: GENERAL: Awake, alert, and fully oriented, in no acute distress. HEAD: soft tissue swelling and erythema involving the right side of the face has improved since admission There is no periorbital edema, no swelling to her tongue, no signs of trauma in any of the areas of her face or oral cavity EYES: Pupils equal, round and reactive to light, extraocular movements intact, sclera anicteric, conjunctiva clear. No lid lag. EARS, NOSE, THROAT: Ears normal, nares patent, oropharynx clear without exudates. Moist mucous membranes. NECK: Normal range of motion, supple without lymphadenopathy, JVD, or masses. LUNGS: Breath sounds equal, clear to auscultation bilaterally. No wheezes HEART: Regular rate and rhythm ABDOMEN: Soft, nontender, not distended, normoactive bowel sounds, no guarding, no rebound, no masses. MUSCULOSKELETAL: Normal range of motion at all joints. No bony deformities or tenderness. No CVA tenderness. UPPER EXTREMITIES: No cyanosis. No clubbing. No peripheral edema. LOWER EXTREMITIES: 2+ pulses, warm, well-perfused. No calf tenderness. No peripheral edema. NEUROLOGICAL: Normal speech. Normal gait. PSYCHIATRIC: Cooperative. Good eye contact. Appropriate mood and affect. Vital Signs Period Temp Pulse Resp BP Sys/Hughes Pulse Ox Last 24 Hr 97.9 F-98.8 F 60-78 18-20 90-114/53-74 98-100 Laboratory Results - last 24 hr 06/08/16 06/08/16 06:30 06:30 WBC 4.8 RBC 4.33 Hgb 13.1 Hct 38.1 MCV 88.0 MCHC 34.3 RDW 13.4 Plt Count 223 MPV 10.1 Neutrophils % 45.0 Lymphocytes % 38.1 Monocytes % 10.8 H Eosinophils % 5.7 H Basophils % 0.4 Sodium 142 Potassium 4.5 Chloride 107 Carbon Dioxide 25 Anion Gap 10 BUN 14 D Creatinine 0.6 Creat Clearance w eGFR > 60 Random Glucose 88 Calcium 8.2 L Total Bilirubin 0.5 D AST 32 D ALT 39 D Alkaline Phosphatase 64 D Total Protein 6.4 Albumin 3.4 Active Medications Generic Name Dose Route Start Last Admin Trade Name Freq PRN Reason Stop Dose Admin Acetaminophen 325 mg 06/06/16 18:03 06/07/16 22:19 Tylenol - PO 325 mg Q6H PRN Administration PAIN Docusate Sodium 100 mg 06/06/16 22:00 06/08/16 09:30 Colace - PO 100 mg BID [facility] Administration Heparin Sodium (Porcine) 5,000 unit 06/06/16 22:00 06/08/16 14:34 Heparin - SQ Not Given TID [facility] Clindamycin Phosphate 50 mls @ 100 mls/hr 06/06/16 18:00 06/08/16 09:30 Cleocin 600 Mg Premix Ivpb - IVPB 100 mls/hr Q8H-IV [facility] Administration Ampicillin Sodium/Sulbactam 100 mls @ 200 mls/hr 06/07/16 11:30 06/08/16 10:44 Sodium 3 gm/ Sodium Chloride IVPB 200 mls/hr Q8H-IV [facility] Administration Ibuprofen 600 mg 06/06/16 16:22 Motrin - PO QID PRN PAIN Oxycodone HCl 5 mg 06/06/16 18:03 06/07/16 22:19 Roxicodone - PO 5 mg Q6H PRN Administration PAIN Pantoprazole Sodium 40 mg 06/07/16 10:00 06/08/16 09:30 Protonix - PO 40 mg DAILY [facility] Administration ASSESSMENT/PLAN: Patient is a 40 year female with a significant past medical history of kidney stones. She presented to the ED on 06/06/2016 with right facial swelling and right upper molar pain. She states that her facial swelling began on 06/04/2016 after a root canal procedure. She states that during the root canal procedure, she experienced severe bleeding and pain which stopped the procedure. She states she was given Novocaine twice during the procedure and reports feeling dizzy after getting Novocaine. After, the procedure, she was informed to picker feeder antibiotics and pain medications that were called into her pharmacy. However , when she went to picker feeder the prescribed medications at [facility], the medications were not there. She instead took Amoxicillin 500mg that she had at home from a previous dental procedure. She denies any chest pain, shortness of breath, dizziness, headache, nausea or vomiting or difficulty swallowing. Imagin06/06/16 Upper Extremity Doppler to rule out DVT of right internal jugular negative for DVT 06/06/[address] - Significant right sided facial soft tissue swelling to right partoid gland compatible with significant right sided facial cellulitis. ID: Facial Cellulitis - improving - less edema/slight tenderness Assessment/Plan: Patient presented to ER with extensive soft tissue swelling and erythema involving the right side of the face after a root canal procedure. Differential includes right facial bacterial infection vs. allergic reaction to Novocaine injection. Will continue with Augmentin and Clindamycin and follow up with PCP Her right sided facial swelling has significantly improved She remains afebrile, WBC within normal limits, no wheezing on exam Blood cultures negative to date ID following Neurology: Dizziness - resolved Assessment/Plan: No dizziness, ambulating without difficulty. Neuro assessments q 4, If has recurrent dizziness, will order head CT F.E.N. Fluids: Tolerating PO Electrolytes: within normal limits Nutrition: Regular diet Prophylaxis: DVT: Heparin, ambulation Gi: Colace Disposition: Full Code. Visit type - Emergency Visit Emergency Visit: Yes ED Registration Date: 06/06/16 Care time: The patient presented to the Emergency Department on the above date and was hospitalized for further evaluation of their emergent condition. - New Patient This patient is new to me today: No - Critical Care Critical Care patient: No - Discharge Referral Referred to [facility] Med P.C.: No
== END 2016-06-08 18:20 | disposition home or self-care (01) | DRG 383 ==
LOC: JER 12:06 → JERBED 15:29 → J6S 17:22
PROVIDERS: ADMIT Internal Medicine; ATTEND Nurse Practitioner Family
DX: L03.211 Cellulitis of face (principal); Z87.442 Personal history of urinary calculi; R42 Dizziness and giddiness
CPT/HCPCS: 36415; 70486-TC; 80048; 80053; 84703; 85025; 85027; 87040; 93971; 99283-25; G0008; J1644; Q2037

== ENCOUNTER 2022-09-10 19:10 | Emergency (ER) | payer OTHER ==
[2022-09-10 19:17] VITALS: BP 110/74; PULSE 86; RESP 17; TEMP 98.5; BMI 24.6
[2022-09-10] MEDS ORDERED: predniSONE 20 MG TABLET (UD) PO ONE (20:50)
[2022-09-10] MEDS ORDERED: ALBUTEROL SO4 2.5/IPRATROPIUM 0.5 INH SOL 3 ML VIAL.NEB. NEB ONE (20:52)
[2022-09-10] MEDS ORDERED: predniSONE 20 MG TABLET (UD) ONE (20:52)
[2022-09-10] MEDS: ALBUTEROL SO4 2.5/IPRATROPIUM 0.5 INH SOL 3 ML VIAL.NEB. NEB SCH ×2 (20:53→20:55)
[2022-09-10] MEDS ORDERED: guaiFENesin/CODEINE 10 ML UNIT-DOSE CUPS PO ONE (21:09)
[2022-09-10] MEDS ORDERED: guaiFENesin/CODEINE 10 ML UNIT-DOSE CUPS ONE (21:42)
== END 2022-09-10 22:13 | disposition home or self-care (01) ==
LOC: JERFT 19:10
PROC: 3E0F7GC Introduction of Other Therapeutic Substance into Respiratory Tract, Via Natural or Artificial Opening (ICD-10-PCS; principal; 2022-09-10)
DX: J45.901 Unspecified asthma with (acute) exacerbation (principal); J06.9 Acute upper respiratory infection, unspecified; Z20.822 Contact with and (suspected) exposure to COVID-19
CPT/HCPCS: 0241U-QW; 71046-TC-FY; 99284-25